=== PATIENT | male | born 1995 | race Caucasian/White ===

== ENCOUNTER 2018-10-05 22:19 | Emergency (ER) | payer SELFPAY ==
[~2018-10-05] VITALS: Ht 170.2 cm; Wt 77.1 kg
[2018-10-05 22:23] VITALS: BP 112/77
[2018-10-05] MEDS ORDERED: IBUPROFEN 400 MG TABLET ONE (22:51)
[2018-10-05] MEDS ORDERED: IBUPROFEN 400 MG TABLET PO ONE (23:00)
== END 2018-10-05 23:31 | disposition home or self-care (01) ==
LOC: ER 22:25
DX: S60.222A Contusion of left hand, initial encounter (principal); F17.200 Nicotine dependence, unspecified, uncomplicated; F12.10 Cannabis abuse, uncomplicated; F10.10 Alcohol abuse, uncomplicated; Y90.9 Presence of alcohol in blood, level not specified; X58.XXXA Exposure to other specified factors, initial encounter; Y93.71 Activity, boxing; Y92.89 Other specified places as the place of occurrence of the external cause; Y99.8 Other external cause status
CPT/HCPCS: 73130-TC